=== PATIENT | male | born 1960 | race Caucasian/White ===

== ENCOUNTER → 2017-03-25 | Outpatient (CLI) | payer BC ==
[~2017-03-25] MED LIST: NO HOME MEDICATIONS; PRINZIDE 12.5 M1 TAB PO
== END ==
LOC: COL.RAD 09:06
DX: N28.1 Cyst of kidney, acquired (principal); Z90.5 Acquired absence of kidney; Z85.520 Personal history of malignant carcinoid tumor of kidney

== ENCOUNTER → 2018-03-18 | Outpatient (CLI) | payer BC | LOC: COL.RAD 07:25 | DX: K76.89 Other specified diseases of liver (principal); N28.1 Cyst of kidney, acquired; Z85.528 Personal history of other malignant neoplasm of kidney; Z90.5 Acquired absence of kidney ==

== ENCOUNTER → 2018-03-27 | Outpatient (CLI) | payer BC | LOC: COL.RAD 07:21 | DX: N28.89 Other specified disorders of kidney and ureter (principal); N28.1 Cyst of kidney, acquired; K76.89 Other specified diseases of liver; Z90.5 Acquired absence of kidney; Z85.528 Personal history of other malignant neoplasm of kidney | CPT/HCPCS: Q9967 ==

== ENCOUNTER → 2018-10-02 | Outpatient (CLI) | payer BC | LOC: COL.RAD 11:41 | DX: N28.9 Disorder of kidney and ureter, unspecified (principal); N28.1 Cyst of kidney, acquired; K76.9 Liver disease, unspecified; Z85.528 Personal history of other malignant neoplasm of kidney; Z90.5 Acquired absence of kidney ==

== ENCOUNTER → 2020-12-07 | Outpatient (CLI) | payer BC | LOC: COL.RAD 13:44 | DX: Z85.528 Personal history of other malignant neoplasm of kidney (principal) ==

== ENCOUNTER 2021-06-25 08:52 | Emergency (ER) | payer OTHER, BC ==
[~2021-06-25] VITALS: Ht 177.8 cm; Wt 80.9 kg
[2021-06-25 09:01] VITALS: TEMP 97.8
[2021-06-25 09:50] VITALS: BP 109/65
[2021-06-25] MEDS ORDERED: VOLTAREN 75 DR75 MG PO (10:10)
[2021-06-25] MEDS ORDERED: CEPHALEXIN500 M1 PO (10:10)
[2021-06-25 10:45] VITALS: PULSE 66
== END 2021-06-25 10:45 | disposition home or self-care (01) ==
LOC: COL.ER 08:52
DX: S68.021A Partial traumatic metacarpophalangeal amputation of right thumb, initial encounter (principal); I10 Essential (primary) hypertension; Z23 Encounter for immunization; Z79.899 Other long term (current) drug therapy; Z87.891 Personal history of nicotine dependence; W29.8XXA Contact with other powered hand tools and household machinery, initial encounter

== ENCOUNTER → 2021-12-12 | Outpatient (CLI) | payer BC ==
[~2021-12-12] MED LIST changes: +CEPHALEXIN500 M1 PO; +VOLTAREN 75 DR75 MG PO
== END ==
LOC: COL.RAD 07:07
DX: N28.1 Cyst of kidney, acquired (principal); Z90.5 Acquired absence of kidney

== ENCOUNTER → 2023-03-19 | Outpatient (CLI) | payer BC | LOC: COL.RAD 14:07 | DX: Z12.2 Encounter for screening for malignant neoplasm of respiratory organs (principal); Z87.891 Personal history of nicotine dependence ==

== ENCOUNTER → 2023-03-28 | Outpatient (CLI) | payer BC | LOC: COL.RAD 13:34 | DX: Z13.6 Encounter for screening for cardiovascular disorders (principal) ==